=== PATIENT | female | born 2000 | race Asian ===

== ENCOUNTER 2023-10-22 16:53 | Emergency (ER) | payer OTHER ==
[2023-10-22 17:00] VITALS: BP 129/93; PULSE 93; RESP 18; TEMP 97.8; BMI 29.2
[2023-10-22] MEDS ORDERED: MAG HYDROX/AL HYDROX/SIMETH 30 ML UNIT-DOSE CUP PO ONE (17:31)
[2023-10-22] MEDS ORDERED: FAMOTIDINE 20 MG TABLET PO ONE (17:31)
[2023-10-22] MEDS ORDERED: SUCRALFATE 1 GM TABLET (FP) PO ONE (17:33)
[2023-10-22] MEDS ORDERED: MAG HYDROX/AL HYDROX/SIMETH 30 ML UNIT-DOSE CUP ONE (17:35)
[2023-10-22] MEDS ORDERED: FAMOTIDINE 20 MG TABLET ONE (17:35)
[2023-10-22] MEDS ORDERED: SUCRALFATE 1 GM TABLET (FP) ONE (17:36)
== END 2023-10-22 18:19 | disposition home or self-care (01) ==
LOC: JERFT 16:53 → JER 16:53 → JERFT 18:19
DX: K21.9 Gastro-esophageal reflux disease without esophagitis (principal)
CPT/HCPCS: 99283-25